=== PATIENT | female | born 1985 | race Two or more races ===

== ENCOUNTER 2019-08-27 08:34 | Emergency (ER) | payer MEDICAID ==
[2019-08-27] MEDS ORDERED: ALPRAZolam 0.5 MG Tab PO ONE (09:22)
[2019-08-27] MEDS ORDERED: Lidocaine 1% with EPINEPHrine 1:100,000 50 ML MDV SUBCUT STA (09:22)
--- NOTE | 2019-08-27 09:28 | EDM.PDOC ---
ED HPI GENERAL MEDICAL PROBLEM - General Chief Complaint: General Stated Complaint: INFECTION NOT SURE WHERE??? Time Seen by Provider: 08/27/19 09:15 Source of Information: Reports: Patient, Old Records, RN History Limitations: Reports: No Limitations - History of Present Illness INITIAL COMMENTS - FREE TEXT/NARRATIVE: 34 yo female from [place] presents with an abscess on her R labia. Thinks she has been having fevers and thinks she needs blood work. Alleges that she took ibuprofen/acetaminophen within the last 6 hrs. Has a rambling history. 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: Acetaminophen, NSAIDS - Related Data Allergies Allergy/AdvReac Type Severity Reaction Status Date / Time codeine Allergy Hives Verified 08/27/19 08:49 Home Meds: Home Meds ALPRAZolam [Alprazolam] 2 mg PO BID PRN 08/27/19 [History] Gabapentin [Neurontin] 1,100 mg PO TID 08/27/19 [History] Past Medical History HEENT History: Reports: Hard of Hearing 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 Social & Family History - Tobacco Use Smoking Status *Q: Current Every Day Smoker Years of Tobacco use: 24 Packs/Tins Daily: 0.4 - Caffeine Use Caffeine Use: Reports: Soda - Recreational Drug Use Recreational Drug Use: Yes Recreational Drug Type: Reports: Marijuana/Hashish, Methamphetamine ED ROS GENERAL - Review of Systems Review Of Systems: See Below Constitutional: Reports: No Symptoms HEENT: Reports: No Symptoms Respiratory: Reports: No Symptoms Skin: Reports: Erythema, Lumps (abscess) Neurological: Reports: No Symptoms ED EXAM, GENERAL - Physical Exam Exam: See Below Exam Limited By: No Limitations General Appearance: Alert, WD/WN, No Apparent Distress Eye Exam: Bilateral Eye: Normal Inspection Ears: Normal External Exam, Normal Canal, Hearing Grossly Normal Ear Exam: Bilateral Ear: Auricle Normal, Canal Normal Nose: Normal Inspection, No Blood Throat/Mouth: Normal Lips, Normal Voice, No Airway Compromise Head: Atraumatic, Normocephalic Neck: Normal Inspection Respiratory/Chest: No Respiratory Distress, No Accessory Muscle Use Extremities: Normal Inspection, Normal Range of Motion, Non-Tender, No Pedal Edema Neurological: Alert, Oriented, CN II-XII Intact, Normal Cognition, No Motor/ Sensory Deficits Psychiatric: Normal Affect, Normal Mood Skin Exam: Warm, Dry, Intact, No Rash, Erythema, Other (2.5 cm abscess R labia majora) Course - Vital Signs Text/Narrative:: Gave Xanax 0.5 mg po before the procedure due to her anxiety. When I came back to the room she was sleeping. She wanted blood work, but the lab struggled with finding a vein due to her IV drug use. I eventually prep'd area with betadine and attempted to anesth the area with lido + epi, but she did not tolerate this and asked me to quit. Was swearing and yelling so I told her I was going to abort the procedure. Mentioned that she thinks she has a needle in both arms for 6 mos. Doesn't want to do anything about it today, though. Last Recorded V/S: Last Vital Signs Temp 36.5 C 08/27/19 08:58 Pulse 90 08/27/19 08:58 Resp 13 08/27/19 08:58 BP 127/68 08/27/19 08:58 Pulse Ox 98 08/27/19 08:58 - Orders/Labs/Meds Labs: Laboratory Tests 08/27/19 Range/Units 10:10 WBC 11.0 (4.5-11.0) K/uL RBC 3.97 (3.30-5.50) M/uL Hgb 12.1 (12.0-15.0) g/dL Hct 37.9 (36.0-48.0) % MCV 96 (80-98) fL MCH 31 (27-31) pg MCHC 32 (32-36) % Plt Count 443 H (150-400) K/uL Meds: Medications Discontinued Medications Generic Name Dose Route Start Last Admin Trade Name Tj PRN Reason Stop Dose Admin Alprazolam 0.5 mg 08/27/19 09:22 08/27/19 09:32 Xanax PO 08/27/19 09:23 0.5 mg NOW ONE Administration Lidocaine/Epinephrine 5 ml 08/27/19 09:22 08/27/19 09:32 Xylocaine 1% With Epinephrine 1:100,000 SUBCUT 08/27/19 09:23 5 ml NOW STA Administration Departure - Departure Time of Disposition: 10:26 Disposition: Home, Self-Care 01 Condition: Good Clinical Impression: Abscess - Discharge Information *PRESCRIPTION DRUG MONITORING PROGRAM REVIEWED*: No *COPY OF PRESCRIPTION DRUG MONITORING REPORT IN PATIENT YEN: No Instructions: Skin Abscess, [id number], Skin Abscess Referrals: PCP,None [Primary Care Provider] - Forms: ED Department Discharge Additional Instructions: See your primary for incision and drainage. Apply moist heat to area. Ibuprofen and/or acetaminophen as needed for pain relief. Sepsis Event Note - Evaluation Sepsis Screening Result: No Definite Risk - Focused Exam Vital Signs: Vital Signs Temp Pulse Resp BP Pulse Ox 08/27/19 08:58 36.5 C 90 13 127/68 98 08/27/19 08:53 36.5 C 90 13 127/68 98 Date Exam was Performed: 08/27/19 Time Exam was Performed: 10:23
== END 2019-08-27 10:51 | disposition home or self-care (01) ==
LOC: JP.ED 08:34
DX: N76.4 Abscess of vulva (principal); F32.9 Major depressive disorder, single episode, unspecified; F41.0 Panic disorder [episodic paroxysmal anxiety]; F17.210 Nicotine dependence, cigarettes, uncomplicated; Z88.5 Allergy status to narcotic agent; Z79.899 Other long term (current) drug therapy
CPT/HCPCS: 36415; 85027; 99283; A9270

== ENCOUNTER 2020-02-18 19:10 | Emergency (ER) | payer MEDICAID ==
[2020-02-18] MEDS ORDERED: cefTRIAXone 1 GM Vial IM ONE (20:06)
[2020-02-18] MEDS ORDERED: Phenazopyridine 95 MG Tab PO ONE (20:07)
--- NOTE | 2020-02-18 20:16 | EDM.PDOC ---
ED HPI GENERAL MEDICAL PROBLEM - General Chief Complaint: Genitourinary Problem Stated Complaint: POSSIBLE UTI Time Seen by Provider: 02/18/20 19:45 Source of Information: Reports: Patient, RN Notes Reviewed History Limitations: Reports: No Limitations - History of Present Illness INITIAL COMMENTS - FREE TEXT/NARRATIVE: Iliana presents today for complaints of pain with urination for 3 days. She states she also has frequency of urination and odor. She complains of intermittent chills with left sided flank pain for 1 day. She denies fever, nausea, vomiting, change in bowel habits. She denies abnormal vaginal discharge or concerns for STI. 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 Social & Family History - Tobacco Use Smoking Status *Q: Current Every Day Smoker Years of Tobacco use: 20 Packs/Tins Daily: 0.5 Used Tobacco, but Quit: No Second Hand Smoke Exposure: Yes - Caffeine Use Caffeine Use: Reports: Soda - Recreational Drug Use Recreational Drug Use: Yes Recreational Drug Type: Reports: Marijuana/Hashish Recreational Drug Use Frequency: Weekly ED ROS GENERAL - Review of Systems Review Of Systems: See Below Constitutional: Reports: Chills HEENT: Reports: No Symptoms Respiratory: Reports: No Symptoms Cardiovascular: Reports: No Symptoms Endocrine: Reports: No Symptoms GI/Abdominal: Reports: Other (suprapubic pain for one day). Denies: Bloody Stool, Constipation, Diarrhea, Decreased Appetite, Difficulty Swallowing, Distension, Nausea, Stool Incontinence, Vomiting : Reports: Dysuria, Flank Pain, Frequency, Urgency. Denies: Discharge, Hematuria, Incontinence, Irregular Menses Musculoskeletal: Reports: No Symptoms Skin: Reports: No Symptoms Neurological: Reports: No Symptoms Psychiatric: Reports: No Symptoms Hematologic/Lymphatic: Reports: No Symptoms Immunologic: Reports: No Symptoms ED EXAM, RENAL/ - Physical Exam Exam: See Below Exam Limited By: No Limitations General Appearance: Alert, WD/WN, No Apparent Distress Eye Exam: Bilateral Eye: Normal Inspection, PERRL Throat/Mouth: Normal Inspection, Normal Lips, Normal Teeth, Normal Gums, Normal Oropharynx, Normal Voice, No Airway Compromise Head: Atraumatic, Normocephalic Respiratory/Chest: No Respiratory Distress, Lungs Clear, Normal Breath Sounds, No Accessory Muscle Use, Chest Non-Tender Cardiovascular: Normal Peripheral Pulses, Regular Rate, Rhythm, No Edema, No Gallop, No Murmur, No Rub GI/Abdominal: Normal Bowel Sounds, Soft, Non-Tender, No Organomegaly, No Distention, No Mass (Female) Exam: Deferred Back Exam: Normal Inspection, Full Range of Motion, CVA Tenderness (L). No: CVA Tenderness (R) Extremities: Normal Inspection, Normal Range of Motion, Non-Tender, No Pedal Edema, Normal Capillary Refill Neurological: Alert, Oriented, Normal Cognition, Normal Gait, Normal Reflexes, No Motor/Sensory Deficits Psychiatric: Normal Affect, Normal Mood Skin Exam: Warm, Dry, Intact, Normal Color, No Rash Course - Vital Signs Last Recorded V/S: Last Vital Signs Temp 37.4 C 02/18/20 19:33 Pulse 85 02/18/20 19:33 Resp 16 02/18/20 19:33 BP 128/71 02/18/20 19:33 Pulse Ox 100 02/18/20 19:33 - Orders/Labs/Meds Orders: Active Orders 24 hr Category Date Time Status CULTURE URINE [RM] Stat Lab 02/18/20 20:36 Received Labs: Laboratory Tests 02/18/20 Range/Units 19:20 Urine Color Yellow (YELLOW) Urine Appearance Turbid A (CLEAR) Urine pH 6.0 (5.0-8.0) Ur Specific [place] >= 1.030 (1.008-1.030) Urine Protein >=300 H (NEGATIVE) mg/dL Urine Glucose (UA) Negative (NEGATIVE) mg/dL Urine Ketones Negative (NEGATIVE) mg/dL Urine Occult Blood Moderate H (NEGATIVE) Urine Nitrite Positive H (NEGATIVE) Urine Bilirubin Negative (NEGATIVE) Urine Urobilinogen 0.2 (0.2-1.0) EU/dL Ur Leukocyte Esterase Large H (NEGATIVE) Urine RBC 5-10 H (0-5) Urine WBC 75-100 H (0-5) Ur Epithelial Cells Moderate Amorphous Sediment Not seen Urine Bacteria Many Urine Mucus Not seen +UA, left flank pain She will be given rocephin 1gram IM and bactrim DS one tablet in the emergency room. She will be given phenazopyridine for discomfort. Discharged to home with bactrim DS and phenazopyridine. Patient in agreement. Meds: Medications Discontinued Medications Generic Name Dose Route Start Last Admin Trade Name Donq PRN Reason Stop Dose Admin Ceftriaxone Sodium 1 gm 02/18/20 20:06 02/18/20 20:27 Rocephin IM 02/18/20 20:07 1 gm ONETIME ONE Administration Phenazopyridine HCl 190 mg 02/18/20 20:07 02/18/20 20:27 Urinary Pain Relief PO 02/18/20 20:08 190 mg ONETIME ONE Administration Trimethoprim/Sulfamethoxazole 1 tab 02/18/20 20:22 02/18/20 20:25 Septra Ds PO 02/18/20 20:23 1 tab ONETIME ONE Administration Departure - Departure Time of Disposition: 20:30 Disposition: Home, Self-Care 01 Condition: Good Clinical Impression: UTI, Urinary tract infectious disease - Discharge Information *PRESCRIPTION DRUG MONITORING PROGRAM REVIEWED*: Not Applicable *COPY OF PRESCRIPTION DRUG MONITORING REPORT IN PATIENT YEN: Not Applicable Instructions: Urinary Tract Infection, Adult Referrals: PCP,None [Primary Care Provider] - Forms: ED Department Discharge Additional Instructions: Push water to stay hydrated and to help flush bladder. Take tylenol 1000mg by mouth three times a day for fever/pain. You can also take ibuprofen 800mg by mouth three times a day for pain. You were given rocephin 1gram IM, bactrim DS one tablet and pyridium for pain in the emergency room. Continue Bactrim DS (septra) one tablet twice per day for a total of 14 days. Fill instymed prescription and hard copy script. Take phenazopyridine as directed for pain. Return to the emergency room for fever, worsening, issues or concerns. Follow up with primary as needed. Sepsis Event Note (ED) - Evaluation Sepsis Screening Result: No Definite Risk - Focused Exam Vital Signs: Vital Signs Temp Pulse Resp BP Pulse Ox 02/18/20 19:33 37.4 C 85 16 128/71 100 - My Orders Last 24 Hours: My Active Orders 02/18/20 20:36 CULTURE URINE [RM] Stat - Assessment/Plan Last 24 Hours: My Active Orders 02/18/20 20:36 CULTURE URINE [RM] Stat Assessment:: UTI, Urinary tract infectious disease Plan: Push water to stay hydrated and to help flush bladder. Take tylenol 1000mg by mouth three times a day for fever/pain. She can also take ibuprofen 800mg by mouth three times a day for pain. She was given rocephin 1gram IM, bactrim DS one tablet and pyridium for pain in the emergency room. Continue Bactrim DS (septra) one tablet twice per day for a total of 14 days. Fill instymed prescription and hard copy script. Take phenazopyridine as directed for pain. She was advised to report to the emergency room for any worsening, issues or concerns. Follow up with primary as needed. Culture pending.
[2020-02-18] MEDS ORDERED: Sulfamethoxazole/Trimethoprim 800-160 MG Tab PO ONE (20:22)
== END 2020-02-18 20:34 | disposition home or self-care (01) ==
LOC: JP.ED 19:10
DX: N39.0 Urinary tract infection, site not specified (principal); F17.210 Nicotine dependence, cigarettes, uncomplicated; Z88.5 Allergy status to narcotic agent
CPT/HCPCS: 81001; 87086; 96372; 99283; A9270; J0696; 87088; 87186

== ENCOUNTER 2020-07-20 | Emergency (ER) | payer MEDICAID ==
--- NOTE | 2020-07-20 00:45 | EDM.PDOC ---
ED HPI GENERAL MEDICAL PROBLEM - General Chief Complaint: Abdominal Pain Stated Complaint: ABD PAIN Time Seen by Provider: 07/20/20 00:45 Source of Information: Reports: Patient History Limitations: Reports: No Limitations - History of Present Illness INITIAL COMMENTS - FREE TEXT/NARRATIVE: pt arrived with pain around the umbilus. She was nauseated earlier but is hungrey now. She has not vomited She is having alot of pain in the area above the umbilus. 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 Social & Family History - Family History Family Medical History: No Pertinent Family History - Tobacco Use Tobacco Use Status *Q: Current Every Day Tobacco User Years of Tobacco use: 25 Packs/Tins Daily: 0.5 - Caffeine Use Caffeine Use: Reports: Soda - Recreational Drug Use Recreational Drug Use: Yes Recreational Drug Type: Reports: Marijuana/Hashish Recreational Drug Use Frequency: Weekly ED ROS GENERAL - Review of Systems Review Of Systems: See Below Constitutional: Reports: Chills, Decreased Appetite HEENT: Reports: No Symptoms Respiratory: Reports: No Symptoms Cardiovascular: Reports: No Symptoms Endocrine: Reports: No Symptoms GI/Abdominal: Reports: Abdominal Pain, Nausea : Reports: Other (pt does have a infected urine.) Musculoskeletal: Reports: No Symptoms ED EXAM, GI/ABD - Physical Exam Exam: See Below Text/Narrative:: pt arrived with periumbilical pain. She was nauseated and dizzy earlier. She has had regular periods. She has been in treatment and she has not been sexually active. Exam Limited By: No Limitations General Appearance: Alert, Anxious, Moderate Distress Ears: Normal TMs Nose: Normal Inspection Throat/Mouth: Normal Inspection Head: Atraumatic Neck: Normal Inspection Respiratory/Chest: No Respiratory Distress Cardiovascular: Regular Rate, Rhythm GI/Abdominal Exam: Soft, Other (pt has tenderness above the umbilus. ) (Female) Exam: Deferred, Other (pt was looking more uncomfortable inspite of pain meds. There was concern that she might have a stone in addition to the UTI She did have 10 rbcs in her urine per high power field. The pain seemed to come and go in spasms and was very severe at times. ) Rectal (Female) Exam: Deferred Back Exam: Normal Inspection Extremities: Normal Inspection Neurological: Alert, Oriented, Normal Cognition Psychiatric: Anxious Course - Vital Signs Last Recorded V/S: Last Vital Signs Temp 36.8 C 07/20/20 00:24 Pulse 71 07/20/20 00:24 Resp 14 07/20/20 00:24 BP 120/60 07/20/20 00:24 Pulse Ox 100 07/20/20 00:24 - Orders/Labs/Meds Labs: Laboratory Tests 07/20/20 07/20/20 07/20/20 Range/Units 00:43 00:54 00:54 WBC 15.6 H (4.5-11.0) K/uL RBC 4.27 (3.30-5.50) M/uL Hgb 13.2 (12.0-15.0) g/dL Hct 40.2 (36.0-48.0) % MCV 94 (80-98) fL MCH 31 (27-31) pg MCHC 33 (32-36) % Plt Count 381 (150-400) K/uL Neut % (Auto) 75 H (36-66) % Lymph % (Auto) 14 L (24-44) % [place] % (Auto) 9 H (2-6) % Eos % (Auto) 1 L (2-4) % Baso % (Auto) 0 (0-1) % Sodium 141 (140-148) mmol/L Potassium 3.5 L (3.6-5.2) mmol/L Chloride 103 (100-108) mmol/L Carbon Dioxide 27 (21-32) mmol/L Anion Gap 14.5 H (5.0-14.0) mmol/L BUN 8 (7-18) mg/dL Creatinine 0.9 (0.6-1.0) mg/dL Est Cr Clr Drug Dosing 69.00 mL/min Estimated GFR (MDRD) > 60 (>60) Glucose 80 (74-106) mg/dL Calcium 9.2 (8.5-10.1) mg/dL Total Bilirubin 0.1 L (0.2-1.0) mg/dL AST 11 L (15-37) U/L ALT 35 (12-78) U/L Alkaline Phosphatase 50 (46-116) U/L C-Reactive Protein 0.11 (0.0-0.3) mg/dL Total Protein 6.6 (6.4-8.2) g/dL Albumin 3.4 (3.4-5.0) g/dL Globulin 3.2 (2.3-3.5) g/dL Albumin/Globulin Ratio 1.1 L (1.2-2.2) Lipase (73-393) U/L Urine Color [place] A (YELLOW) Urine Appearance Cloudy A (CLEAR) Urine pH 7.0 (5.0-8.0) Ur Specific [place] >= 1.030 (1.008-1.030) Urine Protein Negative (NEGATIVE) mg/dL Urine Glucose (UA) 100 H (NEGATIVE) mg/dL Urine Ketones Negative (NEGATIVE) mg/dL Urine Occult Blood Negative (NEGATIVE) Urine Nitrite Positive H (NEGATIVE) Urine Bilirubin Negative (NEGATIVE) Urine Urobilinogen 0.2 (0.2-1.0) EU/dL Ur Leukocyte Esterase Negative (NEGATIVE) Urine RBC 5-10 H (0-5) Urine WBC 5-10 H (0-5) Ur Epithelial Cells Many Amorphous Sediment Many Urine Bacteria Rare Urine Mucus Rare Urine HCG, Qual 07/20/20 07/20/20 Range/Units 00:54 02:50 WBC (4.5-11.0) K/uL RBC (3.30-5.50) M/uL Hgb (12.0-15.0) g/dL Hct (36.0-48.0) % MCV (80-98) fL MCH (27-31) pg MCHC (32-36) % Plt Count (150-400) K/uL Neut % (Auto) (36-66) % Lymph % (Auto) (24-44) % [place] % (Auto) (2-6) % Eos % (Auto) (2-4) % Baso % (Auto) (0-1) % Sodium (140-148) mmol/L Potassium (3.6-5.2) mmol/L Chloride (100-108) mmol/L Carbon Dioxide (21-32) mmol/L Anion Gap (5.0-14.0) mmol/L BUN (7-18) mg/dL Creatinine (0.6-1.0) mg/dL Est Cr Clr Drug Dosing mL/min Estimated GFR (MDRD) (>60) Glucose (74-106) mg/dL Calcium (8.5-10.1) mg/dL Total Bilirubin (0.2-1.0) mg/dL AST (15-37) U/L ALT (12-78) U/L Alkaline Phosphatase (46-116) U/L C-Reactive Protein (0.0-0.3) mg/dL Total Protein (6.4-8.2) g/dL Albumin (3.4-5.0) g/dL Globulin (2.3-3.5) g/dL Albumin/Globulin Ratio (1.2-2.2) Lipase 295 (73-393) U/L Urine Color (YELLOW) Urine Appearance (CLEAR) Urine pH (5.0-8.0) Ur Specific [place] (1.008-1.030) Urine Protein (NEGATIVE) mg/dL Urine Glucose (UA) (NEGATIVE) mg/dL Urine Ketones (NEGATIVE) mg/dL Urine Occult Blood (NEGATIVE) Urine Nitrite (NEGATIVE) Urine Bilirubin (NEGATIVE) Urine Urobilinogen (0.2-1.0) EU/dL Ur Leukocyte Esterase (NEGATIVE) Urine RBC (0-5) Urine WBC (0-5) Ur Epithelial Cells Amorphous Sediment Urine Bacteria Urine Mucus Urine HCG, Qual Positive H Meds: Medications Discontinued Medications Generic Name Dose Route Start Last Admin Trade Name Freq PRN Reason Stop Dose Admin Acetaminophen 650 mg 07/20/20 02:59 12/18/20 03:12 Tylenol PO 07/20/20 03:00 650 mg NOW ONE Administration Alprazolam 0.5 mg 07/20/20 02:36 07/20/20 02:45 Xanax PO 07/20/20 02:37 0.5 mg ONETIME ONE Administration Hydromorphone HCl 0.5 mg 07/20/20 00:58 07/20/20 01:16 Dilaudid IVPUSH 07/20/20 00:59 0.5 mg ONETIME ONE Administration Sodium Chloride 1,000 mls @ 999 mls/hr 07/20/20 01:00 07/20/20 01:11 Normal Saline IV 999 mls/hr ASDIRECTED KIRIT Administration Ceftriaxone Sodium 1 gm/ 50 mls @ 100 mls/hr 07/20/20 00:57 07/20/20 01:16 Sodium Chloride IV 07/20/20 01:26 100 mls/hr ONETIME ONE Administration Ketorolac Tromethamine 30 mg 07/20/20 02:00 07/20/20 02:12 Toradol IVPUSH 07/20/20 02:01 30 mg ONETIME ONE Administration - Re-Assessments/Exams Free Text/Narrative Re-Assessment/Exam: 07/20/20 02:02 pt arrived with pain in the periumbilical area. She feels like the pain has moved down more. She was found to have a UTI. She was given rocephen 1 gm. The urine was cultured. pt was questioned by both the nurse and myself regarding possible preg. She felt that was not a possibility. 07/20/20 02:42pt was looking more uncomfortable and there was some concern about a stone. 03/22 02:57 Later pt stated that she recalled being sexually active and not using protection. A preg test was then run and it was positive. 07/20/20 03:04 Departure - Departure Time of Disposition: 02:43 Disposition: Home, Self-Care 01 Condition: Fair Clinical Impression: UTI (urinary tract infection), Dehydration - Discharge Information Instructions: Dehydration, Adult, [id number], Urinary Tract Infection, Adult Referrals: PCP,None [Primary Care Provider] - Forms: ED Department Discharge Care Plan Goals: push fluids, get an appt with obgyn regarding the preg. amoxicillin 500mg tid for UTI vits Sepsis Event Note (ED) - Evaluation Sepsis Screening Result: No Definite Risk
[2020-07-20] MEDS ORDERED: cefTRIAXone 1 GM in Sodium Chloride 0.9% 50 ML IV ONE (00:57)
[2020-07-20] MEDS ORDERED: HYDROmorphone 0.5 MG/0.5 ML Syringe IVPUSH ONE (00:58)
[2020-07-20] MEDS ORDERED: Sodium Chloride 0.9% 1,000 ML IV SCH (01:00)
[2020-07-20] MEDS ORDERED: Ketorolac 30 MG/ML SDV IVPUSH ONE (02:00)
[2020-07-20] MEDS ORDERED: ALPRAZolam 0.25 MG Tab PO ONE (02:36)
--- NOTE | 2020-07-20 02:39 | CRLCT ---
INDICATION: Lower abdominal pain. COMPARISON: None available TECHNIQUE: CT examination of the abdomen and pelvis was performed without contrast enhancement using 3 mm thick axial sections from the lung bases through the pubic symphysis. Oral contrast was not administered. Please note that all CT scans at this facility use dose modulation, iterative reconstruction, and/or weight-based dosing when appropriate to reduce radiation dose to as low as reasonably achievable. FINDINGS: In the abdomen, the unenhanced liver, spleen, pancreas, and adrenals are normal in appearance. The unenhanced kidneys are normal in appearance. The gallbladder is normal in appearance. The abdominal aorta is normal in caliber with no sign of dilatation. There is no sign of retroperitoneal mass or adenopathy. The stomach is prominently distended with fluid, nonspecific. There is no sign of any gastric wall thickening to suggest gastritis. There is normal appearance of the loops of small bowel and colon in the abdomen are normal in appearance. In the pelvis, the appendix is normal in appearance with no sign of inflammatory process. The loops of small bowel and colon in the pelvis are normal in appearance. The uterus and adnexal regions are normal in appearance. The urinary bladder is normal in appearance. There is no sign of pelvic or inguinal mass or adenopathy. There is no sign of free air or free fluid in the abdomen or pelvis. The lung bases are clear. There is minimal scoliosis of the lumbar spine convex towards the left. There is minimal posterior subluxation of L5 on S1. IMPRESSION: Nothing seen to explain the patient`s lower abdominal pain. CT of the abdomen shows prominent distention of the stomach with fluid, nonspecific. No inflammatory changes seen. Normal CT of the pelvis without contrast. Please note that all CT scans at this facility use dose modulation, iterative reconstruction, and/or weight-based dosing when appropriate to reduce radiation dose to as low as reasonably achievable. Dictated by Shawn Ray MD @ Jul 20 2020 2:31AM Signed by Dr. Shawn Ray @ Jul 20 2020 2:38AM
[2020-07-20] MEDS ORDERED: Acetaminophen 325 MG Tab PO ONE (02:59)
== END 2020-07-20 03:15 | disposition home or self-care (01) ==
LOC: JP.ED
DX: O23.41 Unspecified infection of urinary tract in pregnancy, first trimester (principal); O99.281 Endocrine, nutritional and metabolic diseases complicating pregnancy, first trimester; E86.0 Dehydration; O99.341 Other mental disorders complicating pregnancy, first trimester; F41.9 Anxiety disorder, unspecified; F31.9 Bipolar disorder, unspecified; O99.331 Smoking (tobacco) complicating pregnancy, first trimester; F17.210 Nicotine dependence, cigarettes, uncomplicated; Z88.5 Allergy status to narcotic agent; Z79.899 Other long term (current) drug therapy
CPT/HCPCS: 36415; 74176; 80053; 81001; 81025; 83690; 85025; 86140; 87086; 96365; 96375; 99283; 99284-25; A9270-GY; J0696; J1170; J1885; J7030; J7050

== ENCOUNTER 2021-01-11 10:41 | Emergency (ER) | payer MEDICAID ==
--- NOTE | 2021-01-11 12:46 | EDM.PDOC ---
ED HPI GENERAL MEDICAL PROBLEM - General Chief Complaint: Lower Extremity Injury/Pain Stated Complaint: LEFT LEG SWOLLEN- Time Seen by Provider: 01/11/21 12:30 Source of Information: Reports: Patient History Limitations: Reports: No Limitations - History of Present Illness INITIAL COMMENTS - FREE TEXT/NARRATIVE: Patient presents with left lower extremity pain and swelling that started 5 days ago. she denies any injury or trauma to the area. She reports the swelling has increased since onset. She denies any color changes. She reports a history of DVT approximately 10 years ago and completed treatment with lovenox and warfarin. She admits she is approximately 7 months . she has not received any care during this . She admits to meth and mar ijuana use in the past few weeks. She has an appointment to establish care with OB next week. She denies any associated chest pain or SOB. No fever or chills. No other complaints at this time. - Related Data Allergies Allergy/AdvReac Type Severity Reaction Status Date / Time codeine Allergy Hives Verified 01/11/21 12:07 Home Meds: Home Meds ALPRAZolam [Alprazolam] 0.5 mg PO BID PRN 07/20/20 [History] Past Medical History HEENT History: Reports: Hard of Hearing [employer] History: Reports: , Spontaneous , Therapeutic Neurological History: Reports: Concussion, Migraines Psychiatric History: Reports: Addiction, Aggressive/Hostile Behaviors, Antisocial Behaviors, Anxiety, Bipolar, Depression, Emotional Problems, Mood Swings, Panic Attack, Psych Hospitalization(s), Psychosis Dermatologic History: Reports: Cellulitis - Past Surgical History HEENT Surgical History: Reports: Myringotomy w Tube(s) Female Surgical History: Reports: Section Other Neurological Surgeries/Procedures: Fiobromyalgiz Musculoskeletal Surgical History: Reports: ORIF Other Musculoskeletal Surgeries/Procedures:: ORIF Left clavicle. Social & Family History - Family History Family Medical History: No Pertinent Family History - Tobacco Use Tobacco Use Status *Q: Current Every Day Tobacco User Years of Tobacco use: 25 Packs/Tins Daily: 0.5 - Caffeine Use Caffeine Use: Reports: Soda - Recreational Drug Use Recreational Drug Use: Yes Recreational Drug Type: Reports: Marijuana/Hashish, Methamphetamine Recreational Drug Use Frequency: Binges Review of Systems - Review of Systems Review Of Systems: Comprehensive ROS is negative, except as noted in HPI. ED EXAM, GENERAL - Physical Exam Exam: See Below General Appearance: Alert, No Apparent Distress Head: Atraumatic, Normocephalic Neck: Supple, Full Range of Motion Respiratory/Chest: No Respiratory Distress, Lungs Clear, Normal Breath Sounds, No Accessory Muscle Use Cardiovascular: Normal Peripheral Pulses, Regular Rate, Rhythm Extremities: Other (minimal bilateral LE edema, L>R. No erythema or warmth. No calf tenderness. ) Skin Exam: Warm, Dry, Normal Color, No Rash, Other (No erythema or warmth to lower extremities.) Course - Vital Signs Last Recorded V/S: Last Vital Signs Temp 97.9 F 01/11/21 12:05 Pulse 98 01/11/21 12:05 Resp 18 01/11/21 12:05 BP 124/70 01/11/21 12:05 Pulse Ox 99 01/11/21 12:05 Departure - Departure Time of Disposition: 13:38 Disposition: Home, Self-Care 01 Clinical Impression: Lower extremity edema - Discharge Information Referrals: PCP,None [Primary Care Provider] - Forms: ED Department Discharge Additional Instructions: Follow up to establish OB care. If you develop worsening swelling or pain in the left, follow up in the next week for a repeat lower extremity ultrasound. Sepsis Event Note (ED) - Evaluation Sepsis Screening Result: No Definite Risk - Focused Exam Vital Signs: Vital Signs Temp Pulse Resp BP Pulse Ox 01/11/21 12:05 97.9 F 98 18 124/70 99 01/11/21 11:59 97.9 F 98 18 124/70 99 - Problem List Review Problem List Initiated/Reviewed/Updated: Yes - Assessment/Plan Plan: This is a 35 year old female presenting with left leg swelling over the past 5 days. Differential diagnosis considered includes DVT, cellulitis, related, among others. Swelling is minimal on exam. There is no evidence of infection on exam at this time. Ultrasound did not reveal any evidence of DVT at this time. No other concerning findings today. I encouraged the patient that she needs to follow up to establish OB care. She is not having any abdominal pain, vaginal bleeding, or loss of fluid today and reports feeling movements so I do not feel we need to further evaluate her in the ED today and she can instead follow up. She was encouraged to follow up for a repeat ultrasound if she develops increased swelling or pain in the extremity.
--- NOTE | 2021-01-11 13:20 | US ---
VL Duplex Lwr Ext Veins Ltd Lt INDICATION: left leg swelling and pain; eval for DVT FINDINGS: Ultrasound examination of the lower extremity using Doppler and compressive technique demonstrates that the common femoral, femoral, and popliteal veins are patent, and negative for thrombus. The calf veins were segmentally visualized and are negative where seen. IMPRESSION: Negative for deep venous thrombosis.
== END 2021-01-11 13:53 | disposition home or self-care (01) ==
LOC: JP.ED 10:41
DX: R60.0 Localized edema (principal); Z88.5 Allergy status to narcotic agent; Z72.0 Tobacco use
CPT/HCPCS: 93971-26-LT; 93971-LT; 99284-25